=== PATIENT | male | born 1975 | race Caucasian/White ===

== ENCOUNTER 2018-01-23 12:32 | Emergency (ER) | payer OTHER ==
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
[2018-01-23] MEDS ORDERED: Diphtheria,Pertussis(Acell),Tetanus Vaccine 0.5 ML SDV IM ONE (13:03)
[2018-01-23] MEDS ORDERED: Cephalexin 500 MG Cap PO ONE (13:03)
[2018-01-23] MEDS ORDERED: Bacitracin Oint 1 GM U/D Packet TOP ONE (13:04)
[2018-01-23] MEDS ORDERED: Acetaminophen/HYDROcodone 325-10 MG Tab PO ONE (13:04)
--- NOTE | 2018-01-23 13:30 | CR ---
Clinical history: 43-year-old male injured left wrist. Interpretation: Abnormal. Comminuted fracture/impaction distal radius (dorsal dislocation of the carpal bones at radiocarpal keiko int of the wrist) ...with surrounding soft tissue swelling. Distal ulna appears intact. No carpal metacarpal joints dislocation. No foreign bodies.
[2018-01-23] MEDS ORDERED: Sodium Chloride 0.9% 1,000 ML IV ONE (13:59)
[2018-01-23] MEDS ORDERED: Ketamine 500 mg/10 ML MDV IM ONE (14:00)
[2018-01-23] MEDS ORDERED: Midazolam 1 MG/ML 2 ML SDV IVPUSH ONE ×2 (14:00→14:44)
[2018-01-23] MEDS ORDERED: Sodium Chloride 0.9% 10 ML Syringe FLUSH PRN (14:00)
[2018-01-23] MEDS ORDERED: Lidocaine 1% 30 ML SDV INJECT ONE (14:01)
[2018-01-23] MEDS ORDERED: Midazolam 1 MG/ML 2 ML SDV ONE (14:31)
--- NOTE | 2018-01-23 14:54 | CR ---
Clinical history: Reduction films 43-year-old male with comminuted/impacted distal left radial fractu re. Interpretation: Radiocarpal impaction has been reduced with satisfactory realignment of the largest radial styloid fr agment (persistent displacement large dorsal fragment). Interval radiocarpal reduction of impaction n oted compared to acute injury film. Surrounding soft tissue swelling but no new fracture or radiocarpal dislocation.
== END 2018-01-23 15:21 | disposition home or self-care (01) ==
LOC: DL.ED 12:32
DX: S52.532A Colles' fracture of left radius, initial encounter for closed fracture (principal); S40.812A Abrasion of left upper arm, initial encounter; F17.210 Nicotine dependence, cigarettes, uncomplicated; Z23 Encounter for immunization; V86.99XA Unspecified occupant of other special all-terrain or other off-road motor vehicle injured in nontraffic accident, initial encounter; Y99.0 Civilian activity done for income or pay
CPT/HCPCS: 25605; 73100; 73110; 90715; 96361; 96372; 96374; 99152; 99153; 99283; A9270; J2250; J7030; J7050

== ENCOUNTER 2019-12-19 08:45 | Emergency (ER) | payer SELFPAY ==
[2019-12-19] MEDS ORDERED: Sodium Chloride 0.9% 10 ML Syringe FLUSH PRN (08:48)
[2019-12-19] MEDS ORDERED: Sodium Chloride 0.9% 1,000 ML IV ONE (08:54)
[2019-12-19] MEDS ORDERED: Ketorolac 30 MG/ML SDV IVPUSH ONE (08:54)
[2019-12-19] MEDS ORDERED: HYDROmorphone 0.5 MG/0.5 ML Syringe IVPUSH ONE (09:02)
--- NOTE | 2019-12-19 09:08 | EDM.PDOC ---
ED HPI GENERAL MEDICAL PROBLEM - General Chief Complaint: Flank Pain Stated Complaint: KIDNEY STONES Time Seen by Provider: 12/19/19 09:02 Source of Information: Reports: Patient, RN, RN Notes Reviewed History Limitations: Reports: No Limitations - History of Present Illness INITIAL COMMENTS - FREE TEXT/NARRATIVE: Patient presents to ER with complaint of right flank pain wrapping around into the lower abdomen. Patient states he had kidney stones about 5 years ago, had pain on both sides at that time. Patient states he awoke at 2:00 this morning with the pain, tried to go to work but was not able to work due to the pain. Patient rating pain 9-10/10. Denies blood in urine, fever. Admits to chills. Admits to nausea and vomiting, denies diarrhea. She denies any past medical health history, denies taking any medications on a regular basis. Onset: Today, Sudden Suprapubic Pain Score (Numeric/FACES): 10 - Related Data Allergies Allergy/AdvReac Type Severity Reaction Status Date / Time No Known Allergies Allergy Verified 12/19/19 09:06 Home Meds: Home Meds . 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 ED EXAM, RENAL/ - Physical Exam Exam: See Below Exam Limited By: No Limitations General Appearance: Alert, WD/WN, Moderate Distress Eye Exam: Bilateral Eye: EOMI, Normal Inspection Ears: Normal External Exam, Hearing Grossly Normal Nose: Normal Inspection Throat/Mouth: Normal Inspection, Normal Voice, No Airway Compromise Head: Atraumatic, Normocephalic Neck: Normal Inspection, Supple, Non-Tender, Full Range of Motion Respiratory/Chest: No Respiratory Distress, Lungs Clear, Normal Breath Sounds, No Accessory Muscle Use, Chest Non-Tender Cardiovascular: Normal Peripheral Pulses, Regular Rate, Rhythm, No Edema, No Gallop, No JVD, No Murmur, No Rub GI/Abdominal: Normal Bowel Sounds, Soft, Non-Tender Rectal (Males) Exam: Deferred Back Exam: Normal Inspection, Full Range of Motion, CVA Tenderness (R) Extremities: Normal Inspection, Normal Range of Motion, Non-Tender, Normal Capillary Refill, No Pedal Edema Neurological: Alert, Oriented, CN II-XII Intact, Normal Cognition, Normal Gait, Normal Reflexes, No Motor/Sensory Deficits Psychiatric: Normal Affect, Normal Mood Skin Exam: Warm, Dry, Intact, Normal Color, No Rash Lymphatic: No Adenopathy Course - Vital Signs Last Recorded V/S: Last Vital Signs Temp 96.1 F L 12/19/19 09:01 Pulse 66 12/19/19 09:01 Resp 18 12/19/19 09:01 BP 177/96 H 12/19/19 09:01 Pulse Ox 100 12/19/19 09:01 - Orders/Labs/Meds Orders: Active Orders 24 hr Category Date Time Status Peripheral IV Care [RC] . DIRECTED Care 12/19/19 08:50 Active Abdomen Pelvis wo Cont [CT] Urgent Exams 12/19/19 09:23 Ordered Sodium Chloride 0.9% [Saline Flush] Med 12/19/19 08:48 Active 10 ml FLUSH ASDIRECTED PRN Peripheral IV Insertion Adult [OM.PC] Stat Oth 12/19/19 08:48 Ordered Medication Orders Sodium Chloride (Saline Flush) 10 ml FLUSH ASDIRECTED PRN PRN Reason: Keep Vein Open Last Admin: 12/19/19 09:10 Dose: 10 ml Labs: Laboratory Tests 12/19/19 12/19/19 12/19/19 Range/Units 08:52 08:52 09:30 WBC 10.8 H (5.0-10.0) 10^3/uL RBC 5.03 (4.6-6.2) 10^6/uL Hgb 15.7 (14.0-18.0) g/dL Hct 46.6 (40.0-54.0) % MCV 92.6 (80-100) fL MCH 31.2 (27.0-34.0) pg MCHC 33.7 (33.0-35.0) g/dL Plt Count 241 (150-450) 10^3/uL Neut % (Auto) 72.4 (42.2-75.2) % Lymph % (Auto) 17.0 L (20.5-50.1) % [place] % (Auto) 8.6 H (2-8) % Eos % (Auto) 1.6 (1.0-3.0) % Baso % (Auto) 0.4 (0.0-1.0) % Sodium 137 (136-145) mmol/L Potassium 3.7 (3.5-5.1) mmol/L Chloride 100 (98-107) mmol/L Carbon Dioxide 25 (21-32) mmol/L Anion Gap 15.7 H (7-13) mEq/L BUN 17 (7-18) mg/dL Creatinine 1.15 (0.70-1.30) mg/dL Est Cr Clr Drug Dosing 94.31 mL/min Estimated GFR (MDRD) > 60 BUN/Creatinine Ratio 14.8 (No establ ref range) Glucose 108 H (74-99) mg/dL Calcium 8.7 (8.5-10.1) mg/dL Total Bilirubin 0.4 (0.2-1.0) mg/dL AST 26 (15-37) U/L ALT 40 (16-63) U/L Alkaline Phosphatase 105 (46-116) U/L Total Protein 7.2 (6.4-8.2) g/dL Albumin 3.8 (3.4-5.0) g/dL Globulin 3.4 Albumin/Globulin Ratio 1.1 Urine Color Yellow (YELLOW) Urine Appearance Clear (CLEAR) Urine pH 6.0 (5.0-9.0) Ur Specific [place] 1.025 (1.005-1.030) Urine Protein Negative (NEGATIVE) Urine Glucose (UA) Negative (NEGATIVE) Urine Ketones Negative (NEGATIVE) Urine Occult Blood Large H (NEGATIVE) Urine Nitrite Negative (NEGATIVE) Urine Bilirubin Negative (NEGATIVE) Urine Urobilinogen 0.2 (0.2-1.0) mg/dL Ur Leukocyte Esterase Negative (NEGATIVE) Urine RBC >100 H /HPF Urine WBC 0-5 (0-5/HPF) /HPF Ur Epithelial Cells Rare (NOT SEEN) /HPF Urine Bacteria Few (0-FEW/HPF) /HPF Urine Mucus Few H (NOT SEEN) /LPF Meds: Medications Generic Name Dose Route Start Last Admin Trade Name Freq PRN Reason Stop Dose Admin Sodium Chloride 10 ml 12/19/19 08:48 12/19/19 09:10 Saline Flush FLUSH 10 ml ASDIRECTED PRN Administration Keep Vein Open Discontinued Medications Generic Name Dose Route Start Last Admin Trade Name Freq PRN Reason Stop Dose Admin Hydromorphone HCl 0.5 mg 12/19/19 09:02 12/19/19 09:10 Dilaudid IVPUSH 12/19/19 09:03 0.5 mg ONETIME ONE Administration Sodium Chloride 1,000 mls @ 999 mls/hr 12/19/19 08:54 12/19/19 09:10 Normal Saline IV 12/19/19 09:54 999 mls/hr .BOLUS ONE Administration Ketorolac Tromethamine 30 mg 12/19/19 08:54 12/19/19 09:09 Toradol IVPUSH 12/19/19 08:55 30 mg ONETIME ONE Administration - Radiology Interpretation Free Text/Narrative:: Abdomen/Pelvis CT wo contrast: FINDINGS: Limitations: Evaluation is somewhat limited by lack of IV contrast. Lungs: The visualized lung bases demonstrate minor dependent atelectasis. Liver: The liver contains a small coarse calcification in the left lobe. It appears otherwise grossly unremarkable. Gallbladder and bile ducts: No gallstones are evident, but ultrasound would be more sensitive. No gross biliary ductal dilatation. Pancreas: Grossly unremarkable. Spleen: Grossly unremarkable. Adrenals: Grossly unremarkable. Kidneys and ureters: Mild right-sided hydroureteronephrosis secondary to a 4 x 3 x 2 mm distal right ureteral stone, just proximal to the ureterovesical junction. The right kidney also contains a punctate nonobstructing stone. There is no left-sided hydronephrosis or stone, and the kidneys appear otherwise grossly unremarkable. Stomach and bowel: The unopacified small bowel is not significantly distended to suggest obstruction. The large bowel is grossly unremarkable in appearance. Appendix: No evidence of appendicitis. Intraperitoneal space: No free air or significant free fluid. Vasculature: The abdominal aorta is nonaneurysmal. Atherosclerotic vascular calcifications are noted. Lymph nodes: No gross pathologic lymphadenopathy. Bladder: Grossly unremarkable. Reproductive: There are small calcifications in the prostate. Bones/joints: Degenerative changes involve the spine and hips. Soft tissues: Small fat containing umbilical and bilateral inguinal hernias. IMPRESSION: 1. Mild right-sided hydroureteronephrosis secondary to a 4 x 3 x 2 mm distal right ureteral stone, just proximal to the ureterovesical junction. 2. Punctate additional nonobstructing right renal stone. 3. Small fat containing umbilical and bilateral inguinal hernias. Thank you for allowing us to participate in the care of your patient. Dictated and Authenticated by: Salvador Rodgers MD 12/19/2019 9:50 AM Central Time ([place] & [place]) See rad report Departure - Departure Time of Disposition: 10:00 Disposition: Home, Self-Care 01 Condition: Fair Clinical Impression: Kidney stone on right side - Discharge Information *PRESCRIPTION DRUG MONITORING PROGRAM REVIEWED*: No *COPY OF PRESCRIPTION DRUG MONITORING REPORT IN PATIENT JAYLIN: No Instructions: Renal Colic, [id number], Kidney Stones, [id number], Flank Pain, Adult, [id number], Dietary Guidelines to Help Prevent Kidney Stones Forms: ED Department Discharge Additional Instructions: Drink plenty of water RX: Zofran, Flomax, [place] If no improvement follow up with your primary care facility or Urologist Sepsis Event Note - Focused Exam Vital Signs: Vital Signs Temp Pulse Resp BP Pulse Ox 12/19/19 09:01 96.1 F L 66 18 177/96 H 100 Date Exam was Performed: 12/19/19 Time Exam was Performed: 09:59 - My Orders Last 24 Hours: My Active Orders 12/19/19 08:48 Sodium Chloride 0.9% [Saline Flush] 10 ml FLUSH ASDIRECTED PRN Peripheral IV Insertion Adult [OM.PC] Stat 12/19/19 08:50 Peripheral IV Care [RC] . DIRECTED 12/19/19 09:23 Abdomen Pelvis wo Cont [CT] Urgent - Assessment/Plan Last 24 Hours: My Active Orders 12/19/19 08:48 Sodium Chloride 0.9% [Saline Flush] 10 ml FLUSH ASDIRECTED PRN Peripheral IV Insertion Adult [OM.PC] Stat 12/19/19 08:50 Peripheral IV Care [RC] . DIRECTED 12/19/19 09:23 Abdomen Pelvis wo Cont [CT] Urgent
[2019-12-19 09:21] LABS: ANION GAP 15.7 mEq/L (7-13); CHLORIDE,CL 100 mmol/L (98-107); SODIUM,NA 137 mmol/L (136-145)
== END 2019-12-19 10:17 | disposition home or self-care (01) ==
LOC: DL.ED 08:45
DX: N13.2 Hydronephrosis with renal and ureteral calculous obstruction (principal)
CPT/HCPCS: 36415; 74176; 80053; 81001; 85025; 96361; 96374; 96375; 99284; J1170; J1885; J7030

== ENCOUNTER 2020-06-22 10:50 | Emergency (ER) | payer SELFPAY ==
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
--- NOTE | 2020-06-22 11:30 | CR ---
PROCEDURE INFORMATION: Exam: XR Left Forearm Exam date and time: 06/22/2020 11:11 AM Age: 45 years old Clinical indication: Injury or trauma; Other: Chain; Swelling (edema); Arm, lower; Left; Injury date: Today; Prior surgery; Surgery date: 6+ months; Surgery type: Wrist; Additional info: Injury to forearm from chain TECHNIQUE: Imaging protocol: XR Left forearm. Views: 2 views. COMPARISON: No relevant prior studies available. FINDINGS: Bones/joints: Anatomic alignment is identified. There is distal fixation plate and screws transfixing nondisplaced distal radial fracture. There is no loosening or deformity of hardware. There is radiocarpal joint space narrowing. There are no acute fractures or dislocations. The elbow joint is preserved. Soft tissues: Normal. IMPRESSION: 1. No acute osseous abnormality. 2. Well seated ORIF distal radius with radial carpal joint space narrowing.
== END 2020-06-22 11:55 | disposition home or self-care (01) ==
LOC: DL.ED 10:50
DX: S51.812A Laceration without foreign body of left forearm, initial encounter (principal); F17.210 Nicotine dependence, cigarettes, uncomplicated; W20.8XXA Other cause of strike by thrown, projected or falling object, initial encounter; Y99.0 Civilian activity done for income or pay
CPT/HCPCS: 73090-LT; 99282; 99283-25

== ENCOUNTER 2021-05-10 10:37 | Emergency (ER) | payer SELFPAY ==
[2021-05-10] MEDS ORDERED: Lidocaine 2% with EPINEPHrine 1:200,000 20 ML SDV INJECT ONE (11:13)
--- NOTE | 2021-05-10 11:25 | EDM.PDOC ---
<Brennen Nguyễn Allyson - Last Filed: 05/10/21 12:13> ED HPI GENERAL MEDICAL PROBLEM - General Chief Complaint: Laceration Stated Complaint: LARGE LACERATION ON RIGHT HAND Time Seen by Provider: 05/10/21 11:19 Source of Information: Reports: Patient History Limitations: Reports: No Limitations - History of Present Illness INITIAL COMMENTS - FREE TEXT/NARRATIVE: 46 y/o M c/o R hand laceration after cutting it with a sample washer jet stream. Pt was cleaning some greasy parts off a tractor when his hand got in the way of the nozzle. He reports no pain. Bleeding was controlled with bandage. No other complaints. Reports no neuro or motor deficits. He is up to date on his tetanus. Onset: Today, Sudden Duration: Hour(s): Location: Reports: Upper Extremity, Right - Related Data Allergies Allergy/AdvReac Type Severity Reaction Status Date / Time No Known Allergies Allergy Verified 12/19/19 09:06 Home Meds: Home Meds . [No Known Home Meds] 01/23/18 [History] Past Medical History - Past Health History Medical/Surgical History: Denies Medical/Surgical History Genitourinary History: Reports: Renal Calculus Endocrine/Metabolic History: Reports: Other (See Below) Social & Family History - Family History Family Medical History: No Pertinent Family History - Tobacco Use Tobacco Use Status *Q: Current Every Day Tobacco User Years of Tobacco use: 20 Packs/Tins Daily: 0.5 - Caffeine Use Caffeine Use: Reports: Coffee - Living Situation & Occupation Occupation: Employed ED ROS GENERAL - Review of Systems Review Of Systems: Comprehensive ROS is negative, except as noted in HPI. ED EXAM, SKIN/RASH Exam: See Below Exam Limited By: No Limitations General Appearance: Alert, No Apparent Distress Respiratory/Chest: No Respiratory Distress, Lungs Clear, Normal Breath Sounds, No Accessory Muscle Use, Chest Non-Tender Cardiovascular: Normal Peripheral Pulses, Regular Rate, Rhythm, No Edema, No Gallop, No JVD, No Murmur, No Rub Peripheral Pulses: 2+: Radial (L), Radial (R) Extremities: Other (6 cm mostly superficial laceration to the dorsum of hand overlying the thumb with 1 cm of the superior portion being suturable. ) ED SKIN PROCEDURES - Laceration/Wound Repair Right Posterior Hand Appearance: Superficial, Subcutaneous Distal NVT: Neuro & Vascular Intact Local Anesthesia - Lidocaine (Xylocaine): 2% with EPI Local Anesthetic Volume: 3cc Skin Prep: Saline Exploration/Debridement/Repair: Wound Explored, Explored to Base Closed with: Sutures Lac/Wound length In cm: 6 (1 cm suturable) Suture Size: 4-0 Suture Type: Interrupted Sterile Dressing Applied: Nurse Tetanus Status Addressed: Yes Complications: No Departure - Departure Time of Disposition: 12:10 Disposition: Home, Self-Care 01 Condition: Good Clinical Impression: Hand laceration Qualifiers: Encounter type: initial encounter Foreign body presence: without foreign body Laterality: right Qualified Code(s): S61.411A - Laceration without foreign body of right hand, initial encounter - Discharge Information *PRESCRIPTION DRUG MONITORING PROGRAM REVIEWED*: Not Applicable *COPY OF PRESCRIPTION DRUG MONITORING REPORT IN PATIENT JAYLIN: Not Applicable Instructions: Laceration Care, Adult Forms: ED Department Discharge Additional Instructions: RX: Keflex Keep wound clean and dry for 24 hours. Use aquporin, triple antibiotic ointment or bacitracin to cover the wound until it heals. Keep wound bandaged and clean until sutures are removed. Leave sutures in for 10-14 days. <John Wilson - Last Filed: 05/10/21 13:47> Course - Vital Signs Last Recorded V/S: Last Vital Signs Temp 97.7 F 05/10/21 10:52 Pulse 69 05/10/21 10:52 Resp 18 05/10/21 10:52 BP 158/106 H 05/10/21 10:52 Pulse Ox 98 05/10/21 10:52 - Orders/Labs/Meds Meds: Medications Discontinued Medications Generic Name Dose Route Start Last Admin Trade Name Jacklyn PRN Reason Stop Dose Admin Bacitracin 1 dose 05/10/21 12:12 05/10/21 12:13 Bacitracin Oint 1 Gm U/D Packet TOP 05/10/21 12:13 1 dose ONETIME ONE Administration Lidocaine/Epinephrine 20 ml 05/10/21 11:13 05/10/21 11:59 Lidocaine 2% With Epinephrine 1:200,000 20 Ml Sdv INJECT 05/10/21 11:14 20 ml ONETIME ONE Administration - Re-Assessments/Exams Free Text/Narrative Re-Assessment/Exam: 05/10/21 13:46 Assessment, treatment and plan were reviewed during the patient's visit. I agree with treatment of this patient during visit. Sepsis Event Note (ED) - Focused Exam Vital Signs: Vital Signs Temp Pulse Resp BP Pulse Ox 05/10/21 10:52 97.7 F 69 18 158/106 H 98
[2021-05-10] MEDS ORDERED: Bacitracin Oint 1 GM U/D Packet TOP ONE (12:12)
== END 2021-05-10 12:31 | disposition home or self-care (01) ==
LOC: DL.ED 10:37
DX: S61.411A Laceration without foreign body of right hand, initial encounter (principal); Z72.0 Tobacco use; W26.8XXA Contact with other sharp object(s), not elsewhere classified, initial encounter
CPT/HCPCS: 12002; 99282-25

== ENCOUNTER 2024-02-24 17:06 | Emergency (ER) | payer OTHER ==
[2024-02-24] MEDS: Iopamidol 755 Mg/ML 100 ML Bottle IVPUSH ONE (17:50)
[2024-02-24 17:59] LABS: BASOPHILS PERCENT AUTO 0.3 % (0.0-1.0); EOSINOPHILS PERCENT AUTO 1.3 % (1.0-3.0); HEMATOCRIT 51.5 % (40.0-54.0); HEMOGLOBIN 17.6 g/dL (14.0-18.0); LYMPHOCYTES PERCENT AUTO 8.1 % (20.5-50.1); MEAN CORPUSCULAR HEMOGLOBIN 31.2 pg (27.0-34.0); MEAN CORPUSCULAR HGB CONC 34.2 g/dL (33.0-35.0); MEAN CORPUSCULAR VOLUME 91.3 fL (80-100); MONOCYTES PERCENT AUTO 5.6 % (2-8); NEUTROPHILS PERCENT AUTO 84.7 % (42.2-75.2); PLATELET COUNT,PLT 237 10^3/uL (150-450); RED BLOOD CELL COUNT 5.64 10^6/uL (4.6-6.2); WHITE BLOOD CELL COUNT,WBC 12.7 10^3/uL (5.0-10.0)
[2024-02-24] MEDS: Sodium Chloride 0.9% 1,000 ML IV ONE (18:10)
[2024-02-24 18:13] LABS: INR 1.1 (0.9-1.2); PTT,PARTIAL THROMBOPLSTIN TIME 25.5 SEC (22.0-34.0)
[2024-02-24 18:19] LABS: LACTIC ACID 1.6 mmol/L (0.4-2.0)
[2024-02-24 18:22] LABS: ALBUMIN 3.8 g/dL (3.4-5.0); ANION GAP 14.2 mEq/L (7-13); BILIRUBIN TOTAL 0.4 mg/dL (0.2-1.0); BUN/CREATININE RATIO 19.3 (No establ ref range); CREATININE 1.14 mg/dL (0.70-1.30); EST CRCL DRUG DOSING (CG) 85.09 mL/min; MAGNESIUM 2.2 mg/dL (1.8-2.4); POTASSIUM,K 4.2 mmol/L (3.5-5.1); PROTEIN TOTAL,TP 7.6 g/dL (6.4-8.2); TSH ULTRASENSITIVE 0.7 uIU/mL (0.36-3.74)
[2024-02-24] MEDS: Sodium Chloride 0.9% 10 ML Syringe FLUSH PRN (18:37)
[2024-02-24] MEDS: Nitroglycerin/D5W 25 MG/250 ML BOTTLE IV SCH (19:26)
== END 2024-02-24 20:39 ==
LOC: DL.ED 17:06
DX: I60.9 Nontraumatic subarachnoid hemorrhage, unspecified (principal); I10 Essential (primary) hypertension; R79.89 Other specified abnormal findings of blood chemistry; F17.210 Nicotine dependence, cigarettes, uncomplicated
CPT/HCPCS: 36415; 70450; 70496; 70498; 71045; 80053; 82947; 83605; 83735; 84443; 84484; 85025; 85610; 85730; 93005; 93010; 96361; 96365; 99285; J2305; J7030; Q9967; J3490

== ENCOUNTER 2024-02-28 08:40 | Emergency (ER) | payer OTHER ==
[2024-02-28] MEDS: Lisinopril 20 MG Tab PO ONE (09:17)
[2024-02-28] MEDS: amLODIPine 5 MG Tab PO ONE (09:17)
[2024-02-28] MEDS: hydrALAZINE 25 MG Tab PO ONE (10:41)
== END 2024-02-28 10:48 | disposition home or self-care (01) ==
LOC: DL.ED 08:40
DX: I10 Essential (primary) hypertension (principal); Z79.899 Other long term (current) drug therapy; Z86.73 Personal history of transient ischemic attack (TIA), and cerebral infarction without residual deficits; Z87.891 Personal history of nicotine dependence
CPT/HCPCS: 99283; A9270